=== PATIENT | female | born 1995 | race Two or more races ===

== ENCOUNTER 2020-02-07 09:38 | Outpatient (CLI) | payer OTHER | END 2020-02-07 09:46 | disposition home or self-care (01) | LOC: SONOGRAMA 09:38 | DX: N76.0 Acute vaginitis (principal) ==

== ENCOUNTER 2020-09-25 02:36 | Emergency (ER) | payer OTHER ==
[~2020-09-25] VITALS: Ht 152.4 cm; Wt 90.7 kg
[2020-09-25] MEDS ORDERED: GLIPIZIDE XL5 MG (02:44)
== END 2020-09-25 04:21 | disposition home or self-care (01) ==
LOC: ER 02:36
DX: R53.81 Other malaise (principal); E10.9 Type 1 diabetes mellitus without complications; Z76.0 Encounter for issue of repeat prescription